=== PATIENT | female | born 1990 | race Caucasian/White ===

== ENCOUNTER 2016-03-18 18:46 | Emergency (ER) | payer MEDICAID | END 2016-03-18 19:42 | disposition home or self-care (01) | LOC: D.ER 18:46 | DX: K02.9 Dental caries, unspecified (principal) ==

== ENCOUNTER 2016-04-11 08:54 | Emergency (ER) | payer MEDICAID | END 2016-04-11 10:45 | disposition home or self-care (01) | LOC: D.ER 08:54 | DX: S02.5XXA Fracture of tooth (traumatic), initial encounter for closed fracture (principal); X58.XXXA Exposure to other specified factors, initial encounter; Y93.89 Activity, other specified; Y92.89 Other specified places as the place of occurrence of the external cause ==

== ENCOUNTER 2016-04-18 09:08 | Emergency (ER) | payer MEDICAID | END 2016-04-18 10:35 | disposition home or self-care (01) | LOC: D.ER 09:08 | DX: S39.012A Strain of muscle, fascia and tendon of lower back, initial encounter (principal); X50.0XXA Overexertion from strenuous movement or load, initial encounter; Y93.89 Activity, other specified; Y92.019 Unspecified place in single-family (private) house as the place of occurrence of the external cause ==